=== PATIENT | male | born 1945 | race Caucasian/White ===

== ENCOUNTER 2017-07-13 08:52 | Day surgery (SDC) | payer OTHER ==
[2017-06-21 08:15] VITALS: BMI 26.9
[~2017-07-13 08:52] MED LIST: LACTATED RINGERS 1,000 ML IV SCH; LIDOCAINE 1% 20 ML VIAL (10MG/ML) FOR IV START INTRADERMA PRN
[2017-07-13 10:58] VITALS: RESP 16; TEMP 97.7
[2017-07-13] MEDS ORDERED: PROPOFOL 10 MG/ML 20 ML VIAL IV ONE (11:00)
[2017-07-13] MEDS ORDERED: LIDOCAINE 1% INJ 10MG/ML (20 ML MDV) ONE (11:00)
--- NOTE | 2017-07-13 11:15 | P.PCN ---
Date of Procedure: 07/13/17 Procedure(s) Performed: BRIEF HISTORY: Patient is a 71-year-old, pleasant, male, scheduled for an upper endoscopy as a part of evaluation of intermittent dysphagia to solids. An upper endoscopy with dilation of Schatzki's ring in 2016. Recently while he was visiting [facility], he had a self acute food impaction needing emergency EGD with the foreign body removal. He is hence scheduled for an upper endoscopy with possible dilation today. PROCEDURE PERFORMED: Esophagogastroduodenoscopy with biopsy and dilation. PREOPERATIVE DIAGNOSIS: Intermittent dysphagia to solids. IV sedation per anesthesia. PROCEDURE: After informed consent was obtained, the patient was brought into the endoscopy unit. IV sedation was administered by Anesthesia under continuous monitoring. Initially the Olympus GIF-140 video endoscope was inserted into the mouth. Esophagus intubated without any difficulty. It was gradually advanced into the stomach and duodenum and carefully examined. The bulb and the second part of the duodenum appeared normal. The scope at this time was withdrawn to the stomach, adequately insufflated with air, and upon careful examination, mucosa of the antrum, body, cardia and the fundus appeared normal. The scope was then withdrawn into the esophagus. Small hiatal hernia noted. The GE junction was located at 39 cm from the incisors. There was a short segment of Huggins's esophagus and a 5 mm proximal to the GE junction and this was biopsied. There was distal esophageal Schatzki's ring identified which did not impede the passage of the scope. I proceeded with a balloon dilation using 18 and 19 mm TTS balloon for total of 60 seconds following which there was brisk oozing identified and further dilation was not performed. There were thickened mucosal folds in the mid and distal esophagus suspicious for eosinophilic esophagitis and hence multiple biopsies were done from this area and the patient tolerated the procedure well. IMPRESSION: 1. Distal esophageal Schatzki's ring status post balloon dilation using 18 and 19 mm TTS balloon as described above. 2. Small hiatal hernia and short segment Huggins's esophagus. 3. Thickened mucosal folds in the distal esophagus status post biopsies to rule out eosinophilic esophagitis. RECOMMENDATIONS: The findings of this examination were discussed with the patient as well as his family. He was advised to follow with the biopsy results. He will remain on a clear liquid diet today. He will continue with Prevacid 30 mg daily and follow antireflux measures. He will be seen in the office in 6 weeks.
[2017-07-13 11:44] VITALS: BP 112/89; PULSE 58
== END 2017-07-13 12:03 | disposition home or self-care (01) ==
LOC: ORWHC2ENDO 08:52
PROVIDERS: ATTEND Internal Medicine Gastroenterology
DX: K22.2 Esophageal obstruction (principal); K29.50 Unspecified chronic gastritis without bleeding; K22.70 Barrett's esophagus without dysplasia; K44.9 Diaphragmatic hernia without obstruction or gangrene; K21.9 Gastro-esophageal reflux disease without esophagitis; K20.0 Eosinophilic esophagitis; Z88.0 Allergy status to penicillin; Z79.899 Other long term (current) drug therapy
CPT/HCPCS: 88305; 43249; 43239; J2001; J2704; C1726